=== PATIENT | male | born 1965 | race Caucasian/White ===

== ENCOUNTER 2017-09-17 08:43 | Outpatient (CLI) | payer OTHER ==
--- NOTE | 2017-09-17 10:30 | RAD ---
FIVE VIEWS CERVICAL SPINE: History: Neck pain. M54.2 FINDINGS: AP, lateral, flexion, extension, swimmer's and open mouth odontoid views of the cervical spine obtain ed. Images demonstrate disc space height loss with anterior and posterior osteophytes at C3-4, C4-5, C5-6 , and C6-7. Non-healed old fractures seen involving the C7 spinus process. No other acute abnormality seen. No ev idence of anterolisthesis or retrolisthesis is seen. IMPRESSION: 1. C3-4, C4-5, C5-6 and C6-7 changes of spondylosis. 2. Nonacute non-healed C7 spinus process fracture. POS: [facility]
== END 2017-09-17 08:44 | disposition home or self-care (01) ==
LOC: TBSIIMAG 08:43
PROVIDERS: ATTEND Neurological Surgery
DX: M54.2 Cervicalgia (principal); M47.892 Other spondylosis, cervical region; S12.600A Unspecified displaced fracture of seventh cervical vertebra, initial encounter for closed fracture
CPT/HCPCS: 72050

== ENCOUNTER 2017-10-19 13:26 | Outpatient (CLI) | payer OTHER ==
--- NOTE | 2017-10-19 16:08 | MRI ---
MRI OF THE CERVICAL SPINE WITHOUT CONTRAST 10/19/17 COMPARISON: None. HISTORY: Cervical disc disease, cervical spine injury many years ago, neck pain, with bilateral upper extremit y radiculopathy, left greater than right. TECHNIQUE: Multiplanar and multisequence MR imaging of the cervical spine is provided without contrast. FINDINGS: Sagittal STIR imaging demonstrates no focal area of osseous marrow edema. There is straightening of the normal cervical lordosis. There is no significant anterolisthesis of re trolisthesis seen within the cervical spine. C2-3: There is bilateral facet and uncovertebral osteophyte formation, right greater than left. There is mild bilateral neural foraminal stenosis. No significant central canal stenosis noted. Minimal di sc bulge present. C3-4: There is disc space narrowing and disc desiccation with anterior osteophyte formation. There is a disc osteophyte complex partially effacing the ventral thecal sac and causing a mild degree of jessica tral canal stenosis. There is prominent bilateral facet and uncovertebral osteophyte formation with m oderate/severe bilateral neural foraminal stenosis. C4-5: There is disc space narrowing, disc desiccation and disc bulge effacing the ventral thecal sac and causing a mild to moderate degree of central canal stenosis. There is significant bilateral facet and uncovertebral osteophyte formation with moderate/severe bilateral neural foraminal stenosis, rig ht greater than left. C5-6: There is disc space narrowing and disc desiccation with disc bulge effacing the ventral thecal sac and abutting the ventral aspect of the cord with moderate/severe central canal stenosis. There is prominent bilateral facet and uncovertebral osteophyte formation, right greater than left, with mode rate/severe left and severe right neural foraminal stenosis. There is a focal area of increased T2 si gnal intensity within the right aspect of the cord at C5-6 suggesting age indeterminate cord edema, l ikely on the basis of myelomalacia associated with prior insult. C6-7: There is disc space narrowing and disc desiccation with disc bulge and mild central canal steno sis. Bilateral facet and uncovertebral osteophyte formation noted, left greater than right, with mode rate right and severe left neural foraminal stenosis. C7-T1: There is disc space narrowing. No central canal stenosis. There is facet hypertrophy bilateral ly. There is uncovertebral osteophyte formation on the left with mild left neural foraminal stenosis. No significant right neural foraminal stenosis. IMPRESSION: There is severe multilevel degenerative change within the cervical spine with areas of central canal and neural foraminal stenosis as detailed above. This includes severe central canal stenosis at C5-6 with a focus of abnormal T2 signal intensity within the right aspect of the cord. POS: [facility]
== END 2017-10-19 13:27 | disposition home or self-care (01) ==
LOC: TBSIIMAG 13:26
PROVIDERS: ATTEND Neurological Surgery
DX: M50.022 Cervical disc disorder at C5-C6 level with myelopathy (principal); M50.123 Cervical disc disorder at C6-C7 level with radiculopathy; M47.12 Other spondylosis with myelopathy, cervical region; M48.02 Spinal stenosis, cervical region; M99.51 Intervertebral disc stenosis of neural canal of cervical region
CPT/HCPCS: 72141

== ENCOUNTER 2017-11-05 10:44 | Inpatient (IN) | payer OTHER ==
--- NOTE | 2017-10-29 08:26 | HP ---
HISTORY OF PRESENT ILLNESS: Mr. Mcgowan is a 52-year-old male who presents with numbness, tingling david cking sensation in the left C6 dermatome. He has had this for several years since he had 2 head hits in football during high school. It has gotten worse over the past year. He has had good strength i n his upper extremities and has positive Spurling's on exam when he looks to the left. He has weakne ss in the left tricep muscle and intermittent radicular symptoms in the left C7 dermatome. Over the past several years he has noticed that both hands do not feel right and he has had a hard time grabbi ng small things out of his pocket while at his job. He has also been dropping tools at work. MRI at [facility] on CD. New MRI at [facility] and x-rays. REVIEW OF SYSTEMS: Ten-point review of systems completed and otherwise negative unless stated in the above HPI. PAST MEDICAL HISTORY: Hypertension. PAST SURGICAL HISTORY: Torn labrum in 2004, bone spurs heels 2002, cataract right eye 2015. HOSPITALIZATION: Lumbar compression fracture in 2010. FAMILY HISTORY: Father unknown. Mother unknown. SOCIAL HISTORY: The patient uses [employer]. 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 MEDICATIONS: 1. Taking Bromfed DM 30-2-10 mL - 5 mL syrup, 10 mL as needed q.6 h orally. 2. Tamiflu 75 mg capsule 1 capsule orally twice a day. ALLERGIES: No known drug allergies. PHYSICAL EXAMINATION: HEENT: Normocephalic, atraumatic. Hearing intact. Moist mucous membranes. Trachea is midline. EYES: Pupils are equal and reactive to light. Extraocular muscles are intact. Sclerae is white, no nicteric. PSYCHIATRIC: Normal mood and affect. CARDIOVASCULAR: No cyanosis or clubbing noted. Intact pedal pulses bilaterally. MUSCULOSKELETAL: 5/5 strength in bilateral iliopsoas, quadriceps, hamstrings, right tibialis anterio r and extensor hallucis longus. No sensory deficits bilaterally. Nontender to palpation midline lum bar spine. EXTREMITIES: Upper extremity, 4/5 strength in left triceps. Limited range of motion of the neck sen anamika deficits in C6 and C7 dermatomes. RESPIRATORY: Even respirations, good effort in all lung montes, sound clear with no wheezing or crac kles. NEUROLOGIC: Cranial nerves II through grossly intact. Speech is fluent. He answers my questions ap propriately. He is intermittently off balance with heel to toe walk. ASSESSMENT: 1. Cervical myelopathy with cervical radiculopathy. 2. Neck pain. PLAN: Dr. Wright offered an anterior cervical diskectomy and fusion C5-C7. We discussed the risk s, benefits, and possible complications of surgery. The patient fully understands the risk and is wi lling to proceed with the surgery.
--- NOTE | 2017-11-02 08:24 | HP ---
HISTORY OF PRESENT ILLNESS: Mr. Mcgowan is a 52-year-old male who presents with numbness, tingling, and shocking sensation in the left C6 dermatome. He has had this for several years since he had a hit in football during high school years. This has gotten worse over the past year. He has good strength in his upper extremities and has positive Spurling's on exam. He also has weakness in the left tricep muscle and intermittent radicular symptoms in the left C7 dermatome. Over the past several years, he has noticed that both hands do not feel right and he has had a hard time grabbing small objects out of his pathway. He is off balance and has signs of cervical myelopathy. While at his job, he has been dropping some of his tools at work. MRI and x-rays are at [facility], previous MRI at [facility] in [place]. REVIEW OF SYSTEMS: Ten-point review of systems was completed, otherwise negative, but most of the above HPI. PAST MEDICAL HISTORY: Hypertension. PAST SURGICAL HISTORY: Torn labrum in 2004, bone spurs on the heel 2002, cataract in the right eye 2015. HOSPITALIZATIONS: Lumbar compression fracture in 2010. FAMILY HISTORY: Father, unknown. Mother, unknown. SOCIAL HISTORY: Patient does [employer] tobacco use. 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 MEDICATIONS: Taking Bromfed DM 30-2-10 mg per 5 mL as needed every 6 hours, Tamiflu 75 mg 1 capsule orally once a day. ALLERGIES: No known drug allergies. PHYSICAL EXAMINATION: HEENT: Normocephalic, atraumatic. Hearing intact. Moist mucous membranes. Trachea is midline. EYES: Pupils are equal and reactive to light. Extraocular muscles are intact. Sclerae is white, nonicteric. PSYCH: Normal mood and affect. CARDIOVASCULAR/CARDIOPULMONARY: No cyanosis or clubbing noted. Intact pedal pulses bilaterally. MUSCULOSKELETAL: Lower extremities 5/5 strength in bilateral iliopsoas, quadriceps, hamstrings, right tibialis anterior and extensor hallucis longus. No sensory deficits bilaterally. Nontender to palpation in the midline lumbar spine. NEUROLOGIC: Gait and station are normal. Motor exam: Moderate left triceps and biceps weakness. Sensory exam: Subjective changes nondermatomal in the hands. MRI shows C3-C4, C4-C5, C5-C6, C6-C7, disk disease at C5-C6. There is cord compression at C6-C7, there is left foraminal stenosis. Flexion, extension x-rays shows some rotational instability at C5-C6, no motion elsewhere. ASSESSMENT: Cervical myelopathy with cervical radiculopathy. Cervical disk disorder at C5-C6 level with myelopathy. Cervical disk disorder at C6-C7 with radiculopathy. PLAN: Dr. Wright offered an ACDF at C5-C6 and C6-C7. Informed consent was given. I discussed the indications, risks, benefits, alternatives, and expected results from surgery. The risks discussed included, but were not limited to bleeding, infection, CSF leak, nerve damage, weakness, swallowing trouble, feeding tube placement, tracheal injury, esophageal injury, vocal cord injury, spinal cord injury, incontinence, paralysis, ventilator dependence, wheelchair dependence, stroke, vision, loss of vision, jugular vein injury, hardware misplacement, cardiopulmonary complications of anesthesia or . Long-term complications discussed included, but were not limited to hardware failure and degeneration of surrounding disk. He understands the risks and is willing to proceed with the surgery. WILMER
[2017-11-05 11:27] LABS: Mean Corpuscular HGB CONC 34.3 g/dL (32.0-36.0); Mean Corpuscular Hemoglobin 31.3 pg (27.0-31.0); Mean Corpuscular Volume 91.5 fl (80.0-94.0); Mean Platelet Volume 6.9 fL (7.4-10.4); Platelet Count 248 thou/uL (130-400); RBC Distribution Width 11.7 % (11.5-14.5); Red Blood Cell (RBC) Count 5.12 mill/uL (4.70-6.10); White Blood Cell (WBC) Count 5.9 thou/uL (4.8-10.8)
[2017-11-05] MEDS ORDERED: Sodium Chloride 0.9% 10 ML ONE (11:29)
[2017-11-05] MEDS ORDERED: Thrombin 5000 UNITS/5 ML VIAL ONE (11:29)
[2017-11-05 11:32] LABS: PTT 29.1 SEC (22.9-36.1); Prothrombin Time 13.3 SEC (12.0-14.7)
[2017-11-05] MEDS ORDERED: CEFAZOLIN/Water 2 GM/20 ML SYRINGE ONE (11:49)
[2017-11-05] MEDS ORDERED: Famotidine/PF 20 mg/2ml Vial ONE (12:02)
[2017-11-05] MEDS ORDERED: Fentanyl 250 MCG/5 ML VIAL ONE (12:16)
[2017-11-05] MEDS ORDERED: Glycopyrrolate 0.2 MG/ML 5 ML SYRINGE ONE (16:25)
[2017-11-05] MEDS ORDERED: Lidocaine 1% PF 5 ML VIAL ONE (16:25)
[2017-11-05] MEDS ORDERED: Propofol 200 MG/20 ML VIAL ONE (16:25)
[2017-11-05] MEDS ORDERED: Dexamethasone 20 MG/5 ML VIAL ONE (16:25)
[2017-11-05] MEDS ORDERED: Ondansetron HCl/PF 4 MG/2 ML Vial ONE (16:25)
[2017-11-05] MEDS ORDERED: ePHEDrine/0.9% NaCl/PF SYRINGE 50 mg/10 ml ONE (16:25)
[2017-11-05] MEDS ORDERED: PHENYLEPHRINE-NS 100 MCG/ML 10 ML SYRINGE ONE (16:25)
[2017-11-05] MEDS ORDERED: Acetaminophen/Codeine 30-300mg Tablet PO PRN (17:04)
[2017-11-05] MEDS ORDERED: Cyclobenzaprine 10 MG TAB PO PRN (17:04)
[2017-11-05] MEDS ORDERED: Morphine 4 MG/ML Carpuject SLOW IVP PRN (17:04)
[2017-11-05] MEDS ORDERED: Ondansetron HCl/PF 4 MG/2 ML Vial IVP PRN ×2 (17:04→17:18)
[2017-11-05] MEDS ORDERED: Senokot 8.6 MG TAB PO PRN (17:06)
[2017-11-05] MEDS ORDERED: methylPREDNISolone 4 mg Tablet PO SCH (17:15)
[2017-11-05] MEDS ORDERED: Promethazine HCl 25 MG/ML VIAL SLOW IVP PRN (17:18)
[2017-11-05] MEDS ORDERED: Promethazine HCl 25 MG/ML VIAL IM PRN (17:18)
[2017-11-05] MEDS ORDERED: HYDROmorphone 2 MG/ML VIAL SLOW IVP PRN (17:18)
[2017-11-05] MEDS ORDERED: Morphine 5 MG/ML SYRINGE SLOW IVP PRN ×2 (18:06)
[2017-11-05] MEDS: Sodium Chloride 0.9% 1,000 ML IV SCH (18:10)
--- NOTE | 2017-11-05 19:36 | OP ---
DATE OF PROCEDURE: 11/05/2017 SURGEON: Jai Wright M.D. CHALKER SOLES: Jefe Thapa PA-C. PREOPERATIVE INDICATION: Treat pain, prevent neurological deterioration. PREOPERATIVE DIAGNOSES: Cervical spondylitic myelopathy and cervical radiculopathy from intravertebr al disk disease at C5-C6 and C6-C7. POSTOPERATIVE DIAGNOSES: Cervical spondylitic myelopathy and cervical radiculopathy from intraverteb ral disk disease at C5-C6 and C6-C7. OPERATIVE PROCEDURE: Anterior cervical diskectomy, intravertebral arthrodesis, placement of interver tebral biomechanical devices C5-C6 and C6-C7, anterior cervical plating C5-C6 and C6-C7, local morsel ized autograft, morselized allograft, and operating microscope. PREOPERATIVE MEDICATIONS: Ancef 2 grams IV. DRAIN NUMBER: Zero. DRAIN TYPE: None. OPERATIVE DICTATION: The patient was brought to the operating room. General endotracheal anesthesia was induced. The patient was positioned supine on the operating table, keeping his neck in normal a natomic alignment. A lateral fluoro radiograph was used to plan our incision. The right side of the neck was sterilely prepped and draped. We opened with a 10-blade knife and controlled bleeding with bipolar cautery. We dissected sharply to the platysma and cut this muscle in line with our incision . We continued our dissection medial to the sternocleidomastoid, lateral to the trachea and esophagu s down to the prevertebral space. We placed a marker on the spine and took a lateral fluoro radiogra ph to confirm the level upon which we were operating. We then elevated the longus colli muscles off the anterior surface of C5, C6, and C7 and placed a lateral self-retaining retractor beneath them. T he endotracheal tube cuff was deflated and reinflated just until there was no leak. Distraction pins were placed at C5 and C7 and we distracted across the intervening interspaces. We incised the inter spaces with a 15 blade knife and removed disk contents using curettes and rongeurs. As we approached the posterior longitudinal ligament, we brought the operating microscope into the field. Under micr oscopic magnification using microsurgical techniques, we removed the remainder of the intervertebral disk. We removed the posterior longitudinal ligament. We removed posterior osteophytes. After all of these removals, we had dura decompressed from one nerve root all the way to the other widely openi ng across the canal and into both foramina. This was completed at C5-C6 and again at C6-C7. We turn ed our attention to arthrodesis. Using angled and straight curettes, we prepared the endplates for grafting and measured the height of the interspace with a bone rasp. Two separate 6-mm PEEK grafts were brought into the field. Demine ralized bone matrix was mixed with morselized bone from the patient. This bone was carefully cleaned of soft tissue attachments on the back table. The bone was obtained from osteophytectomy. The bone was then morselized into demineralized bone matrix as our fusion substrate and the substrate was pac ked into the PEEK grafts. The two PEEK interbody devices were advanced into the interspaces under ra diographic guidance to the appropriate depth. Distraction pins were removed and the operating micros cope taken out of the field. A 32 mm anterior cervical plate was brought into the field. We drilled bar pilot holes through the plate into the vertebral bodies at C5, C6, and C7. We fixed the plate using 14 mm screws. Variable angle screws were used at C5 and C6 and fixed angle screws at C7. We engage d the locking mechanism over each of the 6 screws. AP and lateral fluoro radiographs confirmed adequ ate positioning of our instrumentation. We irrigated copiously with bacitracin irrigation. We close d the wound in anatomic layers and we applied a sterile dressing. This was a clean case and no conta mination.
[2017-11-05] MEDS: Acetaminophen/Codeine 30-300mg Tablet PO PRN ×2 (19:47→23:27)
[2017-11-05] MEDS: CEFAZOLIN/Water 2 GM/20 ML SYRINGE SLOW IVP SCH (21:52)
[2017-11-05 22:45] VITALS: BMI 28.6
[2017-11-06] MEDS: CEFAZOLIN/Water 2 GM/20 ML SYRINGE SLOW IVP SCH (05:19)
[2017-11-06] MEDS: Sodium Chloride 0.9% 1,000 ML IV SCH (06:21)
--- NOTE | 2017-11-06 07:12 | PRG ---
DATE OF SERVICE: 11/05/2017 Mr. Mcgowan is seen in his hospital room this morning. He is 1 day out from 2-level ACDF and he feels well. He is up this morning, drinking coffee. He is ambulatory. He had his brace on. His arms and legs are working well. There is no change in his voice or swallowing. Mr. Mcgowan will be discharged today. We went over activity restrictions, wound care, and activity mod ification. He is going to follow up in 2 weeks' time. He has our office phone number for any questi ons.
--- NOTE | 2017-11-06 07:48 | DIS ---
DATE OF ADMISSION: 11/05/2017 DATE OF DISCHARGE: 11/06/2017 ADMISSION DIAGNOSES: Cervical spondylitic myelopathy and radiculopathy at C5-C6 and C6-C7. DISCHARGE DIAGNOSES: Cervical spondylitic myelopathy and radiculopathy at C5-C6 and C6-C7. DISCHARGE CONDITION: The patient is stable. He is able to tolerate a regular diet and he can ambula te in [place] with no problems. CONSULTATIONS: None. PROCEDURES: Anterior cervical diskectomy and fusion at C5-6, C6-7. All images were taken intraopera tively. HISTORY OF PRESENT ILLNESS: Mr. Mcgowan is a 52-year-old male who I saw in the office. He has a histo ry of spondylosis of cervical spine that was contract of evidence from football that he can remember that may be responsible for cervical disease. He has paresthesias in his hands and arms, upper extre mity. After trying non-conservative measures he opted for neurosurgical intervention to relieve this cervical myelopathy. HOSPITAL COURSE: During his hospital course, there were no acute events. Overnight his vital signs have been stable. He has been able to ambulate in the [place] with no problems. He has been able to to lerate a regular diet and his pain is also taking oral pain medication. DISCHARGE PHYSICAL EXAMINATION: HEENT: Normocephalic, atraumatic. Hearing intact. Moist mucous membranes. Trachea midline. EYES: Pupils are equal and reactive to light. Extraocular muscles are intact. Sclerae is white, no nicteric. CARDIOVASCULAR: The patient has regular rate and rhythm, normal S1, S2 heart sounds. NEUROLOGIC: Cranial nerves II-XII are grossly intact. Speech is fluent. He answers my questions ap propriately. EXTREMITIES: Upper extremities strength 5/5 bilaterally. No focal motor or sensory deficits. Lower extremity, 5/5 strength bilaterally. No focal motor deficits noted. ACTIVITY: The patient can have regular activity with restrictions of lifting more than 15 pounds. 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 DIET: The patient can have a regular diet on discharge. DISCHARGE MEDICATIONS: Home medications include lisinopril, sennosides, methylprednisolone, cyclobe nzaprine, and acetaminophen sodium.
[2017-11-06] MEDS ORDERED: Lisinopril 20 MG TAB PO SCH (09:00)
[2017-11-06 11:05] VITALS: BP 134/80; TEMP 97.8
== END 2017-11-06 11:27 | disposition home or self-care (01) | DRG 472 ==
LOC: SDC 10:44 → SURG B 17:04
PROVIDERS: ADMIT Neurological Surgery; ATTEND Neurological Surgery
PROC: 0RG20A0 Fusion of 2 or more Cervical Vertebral Joints with Interbody Fusion Device, Anterior Approach, Anterior Column, Open Approach (ICD-10-PCS; principal; 2017-11-05)
PROC: 0RB30ZZ Excision of Cervical Vertebral Disc, Open Approach (ICD-10-PCS; 2017-11-05)
DX: M47.12 Other spondylosis with myelopathy, cervical region (principal); G95.20 Unspecified cord compression; M50.00 Cervical disc disorder with myelopathy, unspecified cervical region; M47.22 Other spondylosis with radiculopathy, cervical region; M48.02 Spinal stenosis, cervical region; M50.10 Cervical disc disorder with radiculopathy, unspecified cervical region
CPT/HCPCS: 36415; 76001; 85027; 85610; 85730; 93005; 93010; J2270; A4216; C1713; J0131; J1100; J2001; J2405; J2704; J3010; J3490; S0028

== ENCOUNTER 2017-12-28 10:36 | Outpatient (CLI) | payer OTHER ==
--- NOTE | 2017-12-28 13:55 | RAD ---
CERVICAL SPINE TWO VIEWS: HISTORY: Cervical radiculopathy. COMPARISON: None. FINDINGS: Upright lateral flexion and extension views of the cervical spine demonstrate an anterior fusion plat e with a transvertebral body screw at C5, C6, and C7. No evidence of perihardware lucency. There ar e disk prostheses at C5-C6 and C6-C7. Mild degenerative change at C3-C4 and at C4-C5. No significan t listhesis in the flexion or extension positions. IMPRESSION: 1. Post surgical changes as above. 2. No significant listhesis in the flexion or extension positions. POS: [facility]
--- NOTE | 2017-12-28 13:57 | RAD ---
LUMBAR SPINE TWO VIEWS: HISTORY: Lumbar radiculopathy. COMPARISON: 05/25/2011 FINDINGS: Stable mild loss of vertebral body height at L1. In the upright extension position, there is grade 1 retrolisthesis of L2 upon L3. Upon flexion, there is slightly decreased retrolisthesis of L2 upon L 3. Vacuum disk phenomenon at L5-S1 is suspected. IMPRESSION: 1. Degenerative changes of the lumbar spine, as above. 2. Grade 1 retrolisthesis of L2 upon L3 upon flexion and extension. POS: [facility]
--- NOTE | 2017-12-28 14:05 | MRI ---
MRI THORACIC SPINE WITHOUT CONTRAST: Date: 12/28/17 HISTORY: Lumbar spondylosis with myelopathy. Lumbar radiculopathy. Chronic low back pain. Left leg numbness. COMPARISON: None. TECHNIQUE: MRI thoracic spine is performed without intravenous Gadolinium administration. Multisequential, multi planar imaging is performed. FINDINGS: Appropriate T1 marrow signal intensity of the thoracic vertebra. Thoracic spine vertebral body height is maintained. No fracture. No significant STIR hyperintensity to suggest edema or ligamentous injur y. Visualized mediastinal structures, lung parenchyma, and solid organs have appropriate signal intensit y. The thoracic cord has an overall normal size and signal intensity. No evidence of cord expansion or c ord malacia. No T2 hyperintensity in the cord. Conus medullaris terminates beyond the T12 level. T1-T2 and T2-T3: No significant central canal stenosis or foraminal narrowing. T3-T4: Small left and right paracentral disc bulges without significant central canal stenosis or foraminal narrowing. T4-T5: Small left and right paracentral disc bulges without significant central canal stenosis or foraminal narrowing. T5-T6 through T6-T7: No significant disc osteophyte complexes. No significant central canal stenosis or foraminal narrowin g. T7-T8: Small left-sided disc bulge with mild central canal stenosis. Neural foramina are patent. T8-T9: No significant central canal stenosis or foraminal narrowing. T9-T10: Left and right paracentral disc bulges. Mild central canal stenosis. Neural foramina are patent. T10-T11: Left paracentral disc bulge. No significant central canal stenosis. Neural foramina are patent bilate rally. T11-T12: small left and right paracentral disc bulges. No significant central canal stenosis or foraminal narr owing. T12-L1: No significant central canal stenosis or foraminal narrowing. IMPRESSION: Degenerative changes of the thoracic spine as above. No high grade central canal stenosis or high gra de foraminal narrowing. POS: [facility]
--- NOTE | 2017-12-28 14:21 | MRI ---
MRI LUMBAR SPINE WITHOUT CONTRAST: Date: 12/28/17 HISTORY: Lumbar radiculopathy. Chronic mid to lower back pain. Left leg numbness. Left-sided pain. TECHNIQUE: MRI lumbar spine is performed without intravenous Gadolinium administration. Multisequential, multipl lisbet imaging is performed. FINDINGS: Appropriate T1 marrow signal intensity of the lumbar vertebra. Mild loss of vertebral body height at L1, chronic. Chronic Schmorl's node along the superior end plate of L1. Combination of Type I and Typ e II Modic changes on the anterior inferior aspect of T11. Appropriate signal intensity of the psoas muscles. Appropriate signal intensity of the visualized farhat id organs. Conus medullaris terminates at the inferior aspect of L1. T11-T12: Mild central canal stenosis due to disc material. Moderate bilateral foraminal narrowing. T12-L1: No significant central canal stenosis or neural foraminal narrowing. L1-L2: Small left subarticular disc bulge. Disc material abuts but does not obscure the traversing left L2 n erve root. Overall, no significant stenosis of the thecal sac. Mild to moderate right and moderate le ft foraminal narrowing. L2-L3: Adequate disc hydration. Minimal generalized disc bulge without significant central canal stenosis. M inimal narrowing of the right subarticular zone. Disc material abuts, but does not obscure, the trave rsing right L3 nerve root. Mild bilateral neural foraminal narrowing. L3-L4: There is mild loss of disc space height. Generalized disc bulge results in mild stenosis of the theca l sac. There is encroachment upon both subarticular zones without obscuration of either traversing L4 nerve root. No significant stenosis of the thecal sac. Bilaterally, neural foramina are patent. L4-L5: No significant central canal stenosis. There is bilateral facet hypertrophy. Moderate right foraminal narrowing. Mild left foraminal narrowing. There are T2 hyperintensities posterior to the left and ri ght interarticular facet joints which may represent small synovial cysts. L5-S1: No high grade central canal stenosis. Severe bilateral foraminal narrowing. IMPRESSION: Degenerative changes of the lumbar spine as above. POS: [facility]
== END 2017-12-28 10:37 | disposition home or self-care (01) ==
LOC: TBSIIMAG 10:36
PROVIDERS: ATTEND Neurological Surgery
DX: M47.16 Other spondylosis with myelopathy, lumbar region (principal); M47.26 Other spondylosis with radiculopathy, lumbar region; M54.6 Pain in thoracic spine; M43.16 Spondylolisthesis, lumbar region; M47.894 Other spondylosis, thoracic region; Z98.1 Arthrodesis status
CPT/HCPCS: 72040; 72100; 72146; 72148

== ENCOUNTER 2018-07-06 05:57 | Inpatient (IN) | payer OTHER ==
--- NOTE | 2018-07-05 00:29 | HP ---
HISTORY OF PRESENT ILLNESS: Mr. Mcgowan has improved dramatically after his 2- level ACDF in October, but recently he has been trying to get his back and legs , left leg feeling better. L4-5 IL epidural steroid injections were done which did not help. He continues to have pain radiating from the back to the left gluteal mass, to the thigh down and to the foot. The top of the foot is more affected than the bottom. The pain is severe and the patient PT time, medications, and injections have not made it go away. Spinal cord prior to ACDF had myelomalacia at C6-7 in the right anterior brooke cord. There is some temperature alteration on the left side of the body from the chest down. REVIEW OF SYSTEMS: A 10-point review of systems has been completed and is otherwise negative than stated in the above HPI. PAST MEDICAL HISTORY: Hypertension. PAST SURGICAL HISTORY: Torn labrum in 2004, bone spurs in his heel in 2002, cataract on the right eye in 2015, ACDF in 2018. FAMILY HISTORY: Noncontributory. SOCIAL HISTORY: Patient does [employer] snuff, tobacco use. 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 MEDICATIONS: Shanita meds ALLERGIES: No known drug allergies. PHYSICAL EXAMINATION: HEENT: Normocephalic, atraumatic. Eyes equal, round, reactive to light. Extraocular movements are intact. Hearing is intact. Moist mucous membranes. PSYCHIATRIC: Normal mood and affect. RESPIRATORY: Normal work of breathing in room air. CARDIAC: Regular rate and rhythm. Normal S1, S2. NEUROLOGIC: Gait and station antalgic gait today with less time spent on the left leg. Motor exam mild EHL weakness on the left toe. Sensory: Temperature alteration on the left hemibody below T1, no dermatomal loss. Positive single leg raise on the left. Reflex exam clonus improved. No loss of reflexes. IMAGING: MRI of the lumbar spine, foraminal disease from collapse of the interspace at L5-S1, pedicle to pedicle distance too short. Ll healed fracture , no severe stenosis L4 flexion, extension, stable. ASSESSMENT AND PLAN: Lumbar degenerative disk disease, lumbar radiculopathy, foraminal stenosis. A TLIF is only method to create vertical space between the pedicles of L5-S1. Dr. Wright has offered surgery. Informed consent, we discussed the indications, risks, benefits, alternatives, and expected results from surgery. The risks discussed included, but were not limited to bleeding, infection, CSF leak, nerve damage, weakness, incontinence, cauda equina injury, arachnoiditis, paralysis, ventilator dependence, wheelchair dependence, loss of vision, hardware displacement, cardiopulmonary complications of anesthesia or long-term complications discussed included, but were not limited to the degradation of surrounding disks and the need for further surgery. The patient states he understands the risks and is willing to proceed with surgery. WILMER
[2018-07-05 14:32] VITALS: BMI 28.7
[2018-07-06] MEDS ORDERED: Bupivacaine HCl 0.5%/Epinephrine 1:200,000/PF 30 ml Vial ONE (06:16)
[2018-07-06] MEDS ORDERED: Sodium Chloride 0.9% 20 ML ONE (06:16)
[2018-07-06] MEDS ORDERED: Thrombin 5000 UNITS/5 ML VIAL ONE (06:16)
[2018-07-06 06:29] LABS: Hemoglobin 15.3 g/dL (14.0-18.0); Mean Corpuscular HGB CONC 32.5 g/dL (32.0-36.0); Mean Corpuscular Hemoglobin 29.4 pg (27.0-31.0); Mean Corpuscular Volume 90.5 fL (78.0-98.0); Mean Platelet Volume 7.8 fL (7.4-10.4); Platelet Count 236 thou/uL (130-400); RBC Distribution Width 11.3 % (11.5-14.5)
[2018-07-06] MEDS ORDERED: CEFAZOLIN/Water 2 GM/20 ML SYRINGE ONE (06:31)
[2018-07-06 06:38] LABS: INR-International Normal Ratio 0.9; PTT 30.6 SEC (22.9-36.1); Prothrombin Time 12.7 SEC (12.0-14.7)
[2018-07-06] MEDS ORDERED: Midazolam HCl 2 mg/2 ml Vial ONE (06:52)
[2018-07-06] MEDS ORDERED: Fentanyl 250 MCG/5 ML VIAL ONE (06:52)
[2018-07-06] MEDS ORDERED: Fentanyl 100 MCG/2 ML VIAL ONE ×2 (11:56→12:52)
--- NOTE | 2018-07-06 12:13 | OP ---
DATE OF OPERATION: 07/06/2018 SURGEON: Jai Wright M.D. FELLMONGERING MACHINE OPERATOR: Lili Dillon PA-C. PREOPERATIVE INDICATION: Treat pain, prevent neurological deterioration. PREOPERATIVE DIAGNOSIS: Collapse of the intervertebral foramen at L5-S1 with left greater than right L5 radiculopathy. POSTOPERATIVE DIAGNOSIS: Collapse of the intervertebral foramen at L5-S1 with left greater than righ t L5 radiculopathy. OPERATIVE PROCEDURE: Laminectomy wide facetectomy, foraminotomy for decompression of L5 nerve roots and a transforaminal lumbar interbody arthrodesis, placement of intervertebral biomechanical device a nd pedicle screw and shantal instrumentation L5-S1. Local morselized autograft, morselized allograft. PREOPERATIVE MEDICATION: Ancef 2 grams IV. DRAIN NUMBER: Zero. DRAIN TYPE: None. OPERATIVE DICTATION: The patient was brought to the operating room. General endotracheal anesthesia was induced. The patient was positioned prone on the Lennox frame with his chest and his hips supp orted by the appropriate attachments for the Lennox frame. A lateral fluoro radiograph was used to plan our incision over the lumbar spine, giving us access from L5-S1. The skin was sterilely prepped and draped and we opened with a 10 blade knife. We controlled bleeding with bipolar and monopolar c autery. We used monopolar cautery to dissect through subcutaneous tissues to the thoracodorsal fasci a. We incised the fascia in the midline and we reflected the paraspinal muscles off the spinous proc ess and lamina of L4, L5, and S1. We carried the dissection over the L4-5 facet joints and the L5-S1 facet joints to identify the sacral ala and the transverse processes of L5 bilaterally. We irrigate d copiously with bacitracin irrigation and placed a self-retaining retractor. We then used an Adson and Kerrison rongeurs to fashion a laminectomy of L5 completely. We performed a medial facetectomy a t L4-5 and L5-S1. We identified the pedicles of L5 and S1. We turned our attention to decompressing the foramina. Here, we used a foraminotomy Kerrison until we generated enough room for the L5 nerve roots to exit the spine without compression. The left-sided nerve root was still compressed vertica lly by bone above and bone below. We performed a complete facetectomy of L5-S1 on the left and throu gh this opening, we accessed an intervertebral space. We incised the inner space and removed disk co ntents using curettes and rongeurs. We prepared the endplates for grafting with curets and measured the height of the interspace to 9 mm with a rectangular shaped bone rasp. We brought a 9 mm PEEK int ervertebral graft into the field. Laminectomy bone and facetectomy bone was morcellized on the back table after soft tissue was removed and this morselized bone was added to demineralized bone matrix. This fusion substrate was then packed into the PEEK device which was advanced under radiographic karina dance into the interspace to the appropriate depth. We then turned our attention to pedicle screw in strumentation. Using bony anatomic landmarks, palpation of the medial portion of the pedicles, and a lateral fluoro radiograph as a guide, we chose entry points for L5 and S1 pedicle screws. We drilled out our entry points. We then used the bone awl to advance the entry points through the pedicles into the vertebra l bodies. We tapped each trajectory and we probed the trajectories. We found them completely encase d in bone. We then placed 6.5 mm diameter screws into the pedicles of L5 and S1 on both sides. A 36 0 degree image set was generated with our isocentric C-arm confirming adequate position of our pedicl e screw instrumentation. We then irrigated copiously with bacitracin irrigation. We decorticated the transverse processes of L5 and the sacral ala bilaterally. Over the decorticated bone, we left demineralized bone matrix and morselized autograft as our posterolateral fusion substrate. We then brought rods down in the screw heads and tightened caps over the rods. Before final tightening, we applied compression across the interspace to keep our intervertebral graft in place. We tightened caps down over the rods using a t [id number] mechanism. We ensured that our foraminotomies were wide enough for Solorzano ball probe to pass out the foramen with each of the L5 nerve roots without impingement. This was clearly improved from before surgery. Hemostasis was obtained with gentle bipolar cautery and waxing of the bone edges with gentle bipolar cautery. We treated the wound with vancomycin powder. We closed the wound in anatomic layers. We applied a sterile dressing. This was a clean case and no contamination .
[2018-07-06] MEDS ORDERED: HYDROmorphone 2 MG/ML VIAL ONE (13:50)
[2018-07-06] MEDS ORDERED: ePHEDrine/0.9% NaCl/PF SYRINGE 50 mg/10 ml ONE (15:04)
[2018-07-06] MEDS ORDERED: Lidocaine 1% PF 5 ML VIAL ONE (15:04)
[2018-07-06] MEDS ORDERED: PROPOFOL 200 MG/20 ML VIAL ONE (15:04)
[2018-07-06] MEDS ORDERED: diphenhydrAMINE 25 MG CAP PO PRN (16:54)
[2018-07-06] MEDS ORDERED: Ondansetron HCl/PF 4 MG/2 ML Vial IM PRN (16:54)
[2018-07-06] MEDS ORDERED: Promethazine 25 MG TAB PO PRN (16:54)
[2018-07-06] MEDS ORDERED: HYDROcodone/Acetaminophen 7.5/325 mg Tablet PO PRN (16:54)
[2018-07-06] MEDS ORDERED: Mag-Al 1200 mg/1200 mg/30 ML UDCUP PO PRN (16:54)
[2018-07-06] MEDS ORDERED: Promethazine HCl 12.5 MG SUPP PR PRN (16:54)
[2018-07-06] MEDS ORDERED: Promethazine HCl 25 MG/ML VIAL IM PRN (16:54)
[2018-07-06] MEDS ORDERED: Acetaminophen 325 MG TAB PO PRN (16:54)
[2018-07-06] MEDS ORDERED: diphenhydrAMINE 50 MG/ML VIAL IVP PRN (16:54)
[2018-07-06] MEDS ORDERED: Bisacodyl 10 MG SUPP PR PRN (16:54)
[2018-07-06] MEDS ORDERED: Milk Of Magnesia 30 ML UDCUP PO PRN (16:54)
[2018-07-06] MEDS ORDERED: Acetaminophen 650 MG Suppository PR PRN (16:54)
[2018-07-06] MEDS ORDERED: traMADol HCl 50 MG TAB PO PRN ×2 (16:54)
[2018-07-06] MEDS: HYDROcodone/Acetaminophen 7.5/325 mg Tablet PO PRN ×2 (17:06→21:45)
[2018-07-06] MEDS: tiZANidine HCl 4 MG TAB PO PRN (17:18)
[2018-07-06] MEDS ORDERED: Morphine 4 MG/ML VIAL ONE (18:15)
[2018-07-06] MEDS ORDERED: Morphine 2 MG/ML SYRINGE SLOW IVP PRN (18:30)
[2018-07-06] MEDS: Morphine 4 MG/ML VIAL SLOW IVP PRN (18:32)
[2018-07-06] MEDS: Sodium Chloride 0.9% 1,000 ML IV SCH (19:32)
[2018-07-06] MEDS: CEFAZOLIN/Water 2 GM/20 ML SYRINGE SLOW IVP SCH (22:49)
--- NOTE | 2018-07-07 07:16 | PRG ---
DATE OF SERVICE: 07/07/2018 Mr. Mcgowan is 1 day out from decompression fusion at the lumbosacral junction and for collapse of the vertical height of the foramen around the L5 nerve roots. Placement of our interbody device created adequate vertical space for the nerve roots to leave the spine without impingement. Overnight, Mr. Mcgowan had some difficulty with pain control, but once IV morphine was administered he slept well. Vital signs have been stable. He is working on the [employer] incentive spirometer this mo rning due to a low grade fever. Mr. Mcgowan has a bit of numbness oddly and what would be a radial dis tribution on the back of the hand. There is no forearm or arm numbness, but it is manifested the garcia d only, could be from positioning on the operating table or the blood pressure cuff, but the motor fu nction is normal in the right hand. In the lower extremities there is no new weakness, no new numbne ss. L5 loss of sensation on the left side is improving, was changed from the lack of sensation to a bit of tingling indicating more transmission through that nerve root. My plan today is get Mr. Mcgowan walking. We are going to aggressively walk him with physical therapy. If he is able to get in and out of bed, walk around the hallways, manage stairs, go to the bathroom , eat and dress himself he can be discharged after lunch today. Otherwise, we will keep him until to [place].
[2018-07-07] MEDS: Sodium Chloride 0.9% 1,000 ML IV SCH ×2 (07:20→20:25)
[2018-07-07] MEDS: HYDROcodone/Acetaminophen 7.5/325 mg Tablet PO PRN ×2 (08:16→17:02)
[2018-07-07] MEDS: tiZANidine HCl 4 MG TAB PO PRN ×2 (09:51→17:03)
[2018-07-07] MEDS: CEFAZOLIN/Water 2 GM/20 ML SYRINGE SLOW IVP SCH (10:01)
[2018-07-07] MEDS: Morphine 4 MG/ML VIAL SLOW IVP PRN ×2 (10:35→20:46)
--- NOTE | 2018-07-08 06:58 | PRG ---
DATE OF SERVICE: 07/08/2018 Mr. Mcgowan is 2 days out from decompression fusion lumbar spine. His L5 nerve roots are recovering ni lisbet and the left one is much better. The numbness he had in his hand postop is almost completely go ne. He has no new motor deficits. Yesterday he was able to get in and out of bed with assistance. He walked in the hallways, he is emptying his bladder. He is eating. He thinks he can dress himself . There has been a low grade fever, but he is working on his [employer] incentive spirometer. Other vital signs are stable. There is no motor deficit in the hands or the legs. He has good neurological fun ction throughout. There is some residual numbness in left L5, but that is improving. Mr. Mcgowan is going to practice a few more times getting in and out of bed on his own this morning. O nce he is able to manage activities of daily living safely and on his own he will be discharged. I t hink that can happen today or early in the afternoon. Will have prescriptions for 3 days of Ambien t o get off to sleep, a muscle relaxant and a pain medication. He has a brace to go home with. We esperanza l write a prescription for a walker. We went over home going activity restrictions, wound care and f ollowup arrangements.
[2018-07-08] MEDS ORDERED: Acetaminophen/Codeine 30-300mg Tablet PO PRN ×2 (07:11)
[2018-07-08 11:52] VITALS: BP 133/80; TEMP 98.8
== END 2018-07-08 15:01 | disposition home or self-care (01) | DRG 460 ==
LOC: SURG A 05:57
PROVIDERS: ADMIT Neurological Surgery; ATTEND Neurological Surgery
PROC: 0SG00AJ Fusion of Lumbar Vertebral Joint with Interbody Fusion Device, Posterior Approach, Anterior Column, Open Approach (ICD-10-PCS; principal; 2018-07-06)
PROC: 0SG30AJ Fusion of Lumbosacral Joint with Interbody Fusion Device, Posterior Approach, Anterior Column, Open Approach (ICD-10-PCS; 2018-07-06)
DX: M48.061 Spinal stenosis, lumbar region without neurogenic claudication (principal); M51.36 Other intervertebral disc degeneration, lumbar region; M54.16 Radiculopathy, lumbar region; I10 Essential (primary) hypertension; F17.220 Nicotine dependence, chewing tobacco, uncomplicated
CPT/HCPCS: 36415; 76001; 85027; 85610; 85730; A4216; C1713; C1768; G8978-GP-CK; G8979-GP-CI; J0670; J1170; J1200; J2001; J2250; J2270; J2704; J3010; J3370; J3490; L0639

== ENCOUNTER 2019-07-07 12:38 | Outpatient (CLI) | payer BC ==
--- NOTE | 2019-07-07 13:02 | RAD ---
LUMBAR SPINE FOUR VIEWS: 07/07/2019 HISTORY: Prior lumbar spine surgery, lumbar radiculopathy. COMPARISON: 12/28/2017 FINDINGS: Bilateral L5 and S1 pedicle screws with vertically oriented interlocking rods noted. There is a disc device at L5-S1 and there are bilateral laminectomy changes involving L5. There is an old mild anterior wedge compression fracture of L1. There is disc space narrowing with de generative endplate change and anterior osteophyte formation at multiple levels of the lower thoracic spine and upper the lumbar spine, as well as at L3-L4, stable when compared to prior imaging . Neutral lateral exam demonstrates minimal retrolisthesis at L2-L3 and L3-L4, measuring in the 4 mm ra nge. Upon flexion the retrolisthesis at L2-L3 measures 2-3 mm and the retrolisthesis at L3-L4 is no longer visualized. Extension imaging demonstrates retrolisthesis of 5 mm at L2-L3 and 4 mm at L4-L5. No acute osseous abnormality. IMPRESSION: Degenerative and postoperative change within the lumbar spine as above. Transcribed Date/Time: 07/07/2019 1:24 PM
== END 2019-07-07 12:39 | disposition home or self-care (01) ==
LOC: TBSIIMAG 12:38
PROVIDERS: ATTEND Neurological Surgery
DX: M54.5 Low back pain (principal); M47.816 Spondylosis without myelopathy or radiculopathy, lumbar region; Z98.890 Other specified postprocedural states
CPT/HCPCS: 72120

== ENCOUNTER 2019-08-09 12:19 | Outpatient (CLI) | payer BC ==
--- NOTE | 2019-08-09 12:50 | RAD ---
XR Sacroiliac Joints >=3 View History: Sacroiliitis Comparison: Lumbar spine radiographs July 07, 2019 Findings: Posterior spinal fusion hardware at L5/S1. Mild cirrhosis both SI joints. Significant erosi ons. Mild narrowing pubic symphysis with sclerosis. Small bilateral acetabular subcortical cysts. No lumbosacral transitional vertebra. Impression: Mild degenerative changes both SI joints without evidence for active sacroiliitis.
== END 2019-08-09 12:20 | disposition home or self-care (01) ==
LOC: BICRAD 12:19
PROVIDERS: ATTEND Internal Medicine Rheumatology
DX: M46.1 Sacroiliitis, not elsewhere classified (principal); M53.3 Sacrococcygeal disorders, not elsewhere classified
CPT/HCPCS: 72202

== ENCOUNTER 2020-04-17 09:58 | Outpatient (CLI) | payer BC ==
--- NOTE | 2020-04-17 11:22 | RAD ---
LUMBAR SPINE 4 VIEWS: Date: 04/17/2020 COMPARISON: 07/07/2019. HISTORY: Prior lumbar spine fusion surgery, low back pain, left foot neuropathy, lumbar radiculopathy. FINDINGS: Bilateral pedicle screws are present at L5 and S1 with vertically oriented interlocking rods and an i ntervertebral disc device. On the neutral lateral examination, there is minimal retrolisthesis at L2-3 and L3-4 measuring in the 3-4 mm range. There is an old anterior wedge compression fracture at the L1 level, stable. Stable di sc space narrowing with degenerative end plate change and anterior osteophyte formation at T12-L1 thr ough L3-4. The mild retrolisthesis seen on neutral imaging is unchanged on flexion and extension view s. IMPRESSION: Postoperative and degenerative change within the lumbar spine as detailed above. POS: MARKUS
== END 2020-04-17 09:59 | disposition home or self-care (01) ==
LOC: TBSIIMAG 09:58
PROVIDERS: ATTEND Neurological Surgery
DX: M47.26 Other spondylosis with radiculopathy, lumbar region (principal); Z98.1 Arthrodesis status
CPT/HCPCS: 72110

== ENCOUNTER 2020-07-04 08:08 | Outpatient (CLI) | payer BC ==
--- NOTE | 2020-07-04 09:33 | MRI ---
MRI of thelumbar spine with and without contrast: 07/04/2020 COMPARISON:None available HISTORY:Back pain, radiculopathy, prior lumbar spine surgery TECHNIQUE: Multiplanar multisequence MR imaging of thelumbar spine with and without contrast Findings:Posterior fusion hardware is present at the lumbosacral junction. Sagittal STIR imaging demonstrates no focal area of osseous marrow edema. On the basis of 5 lumbar ty pe vertebral bodies, the conus medullaris terminates at the L1-2 level. Mild anterior wedging of the L1 vertebral body noted, evidence of an old fracture. At the T11-T12 level there is disc space narrowing with disc desiccation and mild disc bulge causing mild central canal stenosis. Bilateral facet hypertrophy present with moderate left and mild right neural foraminal stenosis. T12-L1: Mild bilateral facet hypertrophy. Disc space narrowing and disc desiccation. No significant c entral canal or neural foraminal stenosis. L1-2: There is disc space narrowing with disc desiccation and disc bulge. There is an annular tear in the left paracentral region with an associated left paracentral/left foraminal disc protrusion which leads to mild left lateral recess stenosis and mild left neural foraminal stenosis. No signific ant right neural foraminal stenosis. Vacuum disc formation noted. L2-3: There is disc space narrowing with disc desiccation and disc bulge. Superimposed right paracent ral disc protrusion present with mild right lateral recess stenosis. There is bilateral facet hypertrophy with mild bilateral neural foraminal stenosis. L3-4: There is disc space narrowing with mild disc bulge. No significant central canal stenosis. Bila teral facet hypertrophy and hypertrophy of the ligamentum flavum, right greater than left. No significant neural foraminal stenosis on either side. L4-5: Bilateral facet hypertrophy. There is disc space and with disc desiccation and mild disc bulge. There is no significant central canal stenosis. Moderate neural foraminal stenosis on the right and mild neural foraminal stenosis on the left. L5-S1: Bilateral laminectomy changes are present. The neural foramina are not optimally assessed secondary to obscuration by hardware artifact. Probable moderate bilateral neural foraminal stenosis. The imaged retroperitoneal structures demonstrate no acute findings. The postcontrast imaging demonstrates no abnormal enhancement involving the contents of the thecal sa c, the and vertebral discs, or the imaged osseous structures. IMPRESSION:Postoperative and degenerative changes within the lumbar spine as detailed above.
== END 2020-07-04 08:09 | disposition home or self-care (01) ==
LOC: TBSIIMAG 08:08
PROVIDERS: ATTEND Neurological Surgery
DX: M47.816 Spondylosis without myelopathy or radiculopathy, lumbar region (principal); M51.36 Other intervertebral disc degeneration, lumbar region; M48.26 Kissing spine, lumbar region; Z98.890 Other specified postprocedural states
CPT/HCPCS: 72158; 82565